=== PATIENT | male | born 1970 | race Caucasian/White ===

== ENCOUNTER → 2016-05-14 | Outpatient (CLI) | payer OTHER ==
[~2016-05-14] MED LIST: ACHYD1T PO; AMOX875T2 PO; CEPH-507 PO; CLN.1T PO; CYCL10TA9 PO; GABA-486 PO; HYDR-3812 PO; HYDR-3816 PO; HYDR-757 PO; HYDR25TA4 PO; IBUP200C PO; METF500T4 PO; METO-272 PO; METO-333 PO; METO50TA2 PO; PRD20T PO; PRIMATENE MIST INH; ROLAIDS PO; RT-ALBUINH IH; SULF-222 PO; SULF1TAB38 PO; TRAM-21 PO; [UNRECOGNIZED DRUG - OTHER] INH
--- NOTE | 2016-05-14 14:11 | Diagnostic Imaging Report ---
PROCEDURE: CT chest without contrast. TECHNIQUE: Multiple contiguous axial images were obtained through the chest without the use of intravenous contrast. INDICATION: Shortness of breath and wheezing. Chest pain. FINDINGS: The lungs demonstrate no significant consolidation. There is minimal scarring in the anterior right perihilar region. Minimal respiratory motion artifact in the lung bases noted with overall diagnostic quality of the exam however acceptable. No mass or suspicious pulmonary nodule. The heart size is normal. No pericardial effusion. No pleural effusion. The thoracic aorta is normal in caliber. There is no mediastinal mass or lymphadenopathy. No axillary lymphadenopathy. The hilar vessels are not opacified with no obvious hilar enlarged lymph nodes seen. The liver demonstrates diffuse hepatic steatosis. Lobulation and suggestion of scarring in the upper pole of the left kidney seen. There is also mild ectasia of the upper pole calyces. Scoliosis in the thoracic spine with mild degenerative changes seen. The scoliosis is centered in the mid thoracic spine convex to the right. IMPRESSION: 1. Mild right perihilar scarring with no significant abnormality seen in the chest otherwise. 2. Hepatic steatosis. Dictated by: Dictated on workstation # [id number]
--- NOTE | 2016-05-14 19:15 | Diagnostic Imaging Report ---
Scrotal ultrasound. INDICATION: Scrotal wall abscess. FINDINGS: The right testicle is 4.1 x 2.4 x 3.1 cm. The left testicle is 5.4 x 2.8 x 3.2 cm. There is a small to moderate bilateral hydrocele more prominent on the left side.. There is a 4.7 x 0.9 x 1.2 cm elongated hypoechoic abnormality seen in the right lateral aspect of the scrotum just deep to the skin. This is not associated with internal vascularity; however, there is increased color Doppler in the surrounding tissue. Both testicles demonstrate symmetric color Doppler signal. No varicoele. No solid mass in the testicles. IMPRESSION: 1. Elongated hypoechoic subcutaneous lesion along the right lateral aspect of the scrotum with surrounding hyperemia could be related to abscess or chronic seroma. Correlate clinically. 2. Small to moderate bilateral hydrocele. Dictated by: Dictated on workstation # [id number]
== END ==
LOC: RAD 10:54
PROVIDERS: ATTEND Family Medicine
DX: J98.4 Other disorders of lung (principal); R50.9 Fever, unspecified; N49.2 Inflammatory disorders of scrotum
CPT/HCPCS: 71250; 76870

== ENCOUNTER 2016-05-28 14:57 | Outpatient (RCR) | payer OTHER ==
[~2016-05-28 14:57] MED LIST changes: -AMOX875T2 PO; -METF500T4 PO; -METO50TA2 PO; -RT-ALBUINH IH
== END 2016-05-28 16:00 | disposition home or self-care (01) ==
LOC: WOUNDCARE 14:57
PROVIDERS: ATTEND Surgery
DX: I87.2 Venous insufficiency (chronic) (peripheral) (principal); I10 Essential (primary) hypertension; J44.9 Chronic obstructive pulmonary disease, unspecified; Z83.3 Family history of diabetes mellitus
CPT/HCPCS: 99212; 99213

== ENCOUNTER 2016-06-07 01:32 | Emergency (ER) | payer MEDICARE, OTHER ==
[~2016-06-07] VITALS: Ht 193 cm; Wt 151.0 kg
[2016-06-07] MEDS ORDERED: ASPIRIN 81 MG CHEW (CHILDREN'S ASA) PO ONE (01:45)
[2016-06-07] MEDS ORDERED: RX-NITROGLYCERIN 0.4 MG TAB BTL 25'S SL ONE (01:45)
[2016-06-07] MEDS ORDERED: RT-ALBUINH IH (01:49)
[2016-06-07] MEDS ORDERED: METF500T4 PO (01:52)
[2016-06-07 01:56] LABS: BASOPHILS # (AUTO) 0.1 10^3/uL (0.0-0.1); BASOPHILS % (AUTO) 1 % (0-10); EOSINOPHILS # (AUTO) 0.3 10^3/uL (0.0-0.3); EOSINOPHILS % (AUTO) 2 % (0-10); LYMPHOCYTES # (AUTO) 3.3 X 10^3 (1.0-4.0); LYMPHOCYTES % (AUTO) 24 % (12-44); MEAN CORPUSCULAR HEMOGLOBIN 31 PG (25-34); MEAN CORPUSCULAR HGB CONC 36 G/DL (32-36); MEAN CORPUSCULAR VOLUME 86 FL (80-99); MEAN PLATELET VOLUME 11.9 FL (7.4-10.4); MONOCYTES % (AUTO) 7 % (0-12); NEUTROPHILS # (AUTO) 9.4 X 10^3 (1.8-7.8); NEUTROPHILS % (AUTO) 67 % (42-75); PLATELET COUNT 195 10^3/uL (130-400); RED BLOOD COUNT 5.31 10^6/uL (4.35-5.85); RED CELL DISTRIBUTION WIDTH 13.4 % (10.0-14.5)
--- NOTE | 2016-06-07 02:01 | ED Chest Pain ---
General Chief Complaint: Chest Pain Stated Complaint: CP,SOB Nursing Triage Note: Pt c/o sternal chest pain onset at 2100. Pt also reports SOA and feeling dizzy. Pt reports he started a new diabetic medication today and states he has not been eating much today because of a bad tooth. Nursing Sepsis Screen: No Definite Risk Source: patient Exam Limitations: no limitations History of Present Illness Time seen by provider: 01:35 Initial Comments 45 yo male presents with chest/epigastric pain. pt states pain started around 9 pm. pt describes pain as sharp, stabbing. pt has some mild sob, dizziness. pt states hasnt eatin much because problem with tooth. pt started metformin today. pt has some mild nausea. Severity/Quality: sharp, stabbing Location: substernal, epigastric Radiation: no radiation Activities at Onset: none ASA po FAMILY PRACTICE PHYSICIAN ASSISTANT: No NTG SL FAMILY PRACTICE PHYSICIAN ASSISTANT: No Associated Symptoms: dizziness, shortness of breath Allergies and Home Medications Allergies Uncoded Allergies: ADHISIVE TAPE (Allergy, Mild, 06/25/08) Home Medications Albuterol Sulfate 6.7 Gm Hfa.aer.ad, 2 PUFF IH Q4H PRN for SHORTNESS OF BREATH, (Reported) Amoxicillin 875 Mg Tablet, 875 MG PO BID, #14 Prescribed by: SO GALINDO on 06/07/16 0229 Cyclobenzaprine HCl 10 Mg Tablet, 10 MG PO Q8H PRN for SPASMS, #15 Prescribed by: ISAAC THOMAS on 03/05/15 0508 Gabapentin 100 Mg Capsule, 200 MG PO BID, #120 (Reported) Hydrochlorothiazide 25 Mg Tablet, 25 MG PO DAILY, #30 (Reported) Metformin HCl 500 Mg Tablet, 500 MG PO DAILY, (Reported) Metoprolol Tartrate 25 Mg Tablet, 50 MG PO BID, #60 (Reported) Review of Systems Constitutional: No chills, dizziness, No fever EENTM: No Symptoms Reported Respiratory: Shortness of Air Cardiovascular: See HPI Gastrointestinal: Nausea Musculoskeletal: no symptoms reported Skin: no symptoms reported Past Iaafjpk-Qobgwh-Lieyxa Hx Patient Social History Alcohol Use: Denies Use Recreational Drug Use: No Smoking Status: Current Everyday Smoker 2nd Hand Smoke Exposure: Yes Recent Foreign Travel: No Contact w/Someone Who Travel: No Recent Infectious Disease Expo: No Recent Hopitalizations: No Immunizations Up To Date Tetanus Booster (TDap): More than 5yrs Seasonal Allergies Seasonal Allergies: No Surgeries HX Surgeries: Yes (MULTIPLE KIDNEY SURGERIES) Surgeries: Renal Respiratory Hx Respiratory Disorders: Yes (uses an over the counter inhaler prn) Respiratory Disorders: Chronic Bronchitis Cardiovascular Hx Cardiac Disorders: Yes Cardiac Disorders: Chronic Edema/Swelling, Hypertension, Peripheral Vascular Neurological Hx Neurological Disorders: Yes Neurological Disorders: Neuropathy Reproductive System Hx Reproductive Disorders: No Sexually Transmitted Disease: No HIV/AIDS: No Genitourinary Hx Genitourinary Disorders: Yes (KIDNEY PROBLEMS; 16 kidney sx's b4 age of 12) Gastrointestinal Hx Gastrointestinal Disorders: No Musculoskeletal Hx Musculoskeletal Disorders: Yes (debility ambulating due to poor circulation to lower legs) Endocrine Hx Endocrine Disorders: Yes Endocrine Disorders: Diabetes, Non-Insulin dep HEENT HX ENT Disorders: No Loss of Vision: Denies Hearing Impairment: Denies Cancer Hx Cancer: No Psychosocial Hx Psychiatric Problems: Yes Behavioral Health Disorders: Anxiety Integumentary HX Skin/Integumentary Disorder: Yes (poor tissue profusion to lower hitesh legs, CHRONIC CELLULITIS) Blood Transfusions Hx Blood Disorders: No Adverse Reaction to a Blood Tr: No Reviewed Nursing Assessment Reviewed/Agree w Nursing PMH: Yes Family Medical History Family Medial History: Arthritis MATERNAL UNCLE, Onset:Unknown FH: cancer 19 MOTHER, Onset:Unknown (UNSURE OF WHAT TYPE OF CANCER) FH: deafness SON, Onset:[place] (BORN DEAF) FH: emphysema MATERNAL UNCLE, Onset:Unknown FH: genetic disorder FH: throat cancer 19 FATHER, Onset:Unknown Myocardial infarction 19 FATHER, Onset:Unknown 19 MOTHER, Onset:Unknown Physical Exam Vital Signs Vital Sign - Last 12Hours Capillary Refill : Less Than 3 Seconds General Appearance: No Apparent Distress, WD/WN HEENT: Other (severe dental decay with probable infection ) Neck: Non Tender Respiratory: Chest Non Tender, Lungs Clear, Normal Breath Sounds Cardiovascular: Regular Rate, Rhythm, Normal Peripheral Pulses Gastrointestinal: Soft, Tenderness (mild epigastric ) Extremity: Normal Capillary Refill, Pedal Edema, Other (chronic venous stasis changes to lower ext ) Neurologic/Psychiatric: Alert, Oriented x3 Progress/Results/Core Measures Results/Orders Lab Results Laboratory Tests Test 06/07/16 01:44 Range/Units White Blood Count 14.0 H 4.3-11.0 10^3/uL Red Blood Count 5.31 4.35-5.85 10^6/uL Hemoglobin 16.4 13.3-17.7 G/DL Hematocrit 46 40-54 % Mean Corpuscular Volume 86 80-99 FL Mean Corpuscular Hemoglobin 31 25-34 PG Mean Corpuscular Hemoglobin Concent 36 32-36 G/DL Red Cell Distribution Width 13.4 10.0-14.5 % Platelet Count 195 130-400 10^3/uL Mean Platelet Volume 11.9 H 7.4-10.4 FL Neutrophils (%) (Auto) 67 42-75 % Lymphocytes (%) (Auto) 24 12-44 % Monocytes (%) (Auto) 7 0-12 % Eosinophils (%) (Auto) 2 0-10 % Basophils (%) (Auto) 1 0-10 % Neutrophils # (Auto) 9.4 H 1.8-7.8 X 10^3 Lymphocytes # (Auto) 3.3 1.0-4.0 X 10^3 Monocytes # (Auto) 1.0 0.0-1.0 X 10^3 Eosinophils # (Auto) 0.3 0.0-0.3 10^3/uL Basophils # (Auto) 0.1 0.0-0.1 10^3/uL Prothrombin Time 12.9 12.2-14.7 SEC INR Comment 1.0 0.8-1.4 Activated Partial Thromboplast Time 27 24-35 SEC Sodium Level 127 L 135-145 MMOL/L Potassium Level 3.7 3.6-5.0 MMOL/L Chloride Level 91 L 98-107 MMOL/L Carbon Dioxide Level 24 21-32 MMOL/L Anion Gap 12 5-14 MMOL/L Blood Urea Nitrogen 21 H 7-18 MG/DL Creatinine 1.50 H 0.60-1.30 MG/DL Estimat Glomerular Filtration Rate 50 BUN/Creatinine Ratio 14 Glucose Level 116 H 70-105 MG/DL Calcium Level 9.4 8.5-10.1 MG/DL Magnesium Level 1.4 L 1.8-2.4 MG/DL Total Bilirubin 0.7 0.1-1.0 MG/DL Aspartate Amino Transf (AST/SGOT) 22 5-34 U/L Alanine Aminotransferase (ALT/SGPT) 31 0-55 U/L Alkaline Phosphatase 73 40-136 U/L Troponin I < 0.30 <0.30 NG/ML B-Type Natriuretic Peptide < 10.0 <100.0 PG/ML Total Protein 6.6 6.4-8.2 G/DL Albumin 3.6 3.2-4.5 G/DL My Orders Orders - SO GALINDO L DO Cbc With Automated Diff (06/07/16 01:44) Magnesium (06/07/16 01:44) Chest 1 View, Ap/Pa Only (06/07/16 01:44) Ekg Tracing (06/07/16 01:44) Cardiac Profile 1 (06/07/16 01:44) Comprehensive Metabolic Panel (06/07/16 01:44) Protime With Inr (06/07/16 01:44) Partial Thromboplastin Time (06/07/16 01:44) O2 (06/07/16 01:44) Monitor-Rhythm Ecg Trace Only (06/07/16 01:44) Aspirin Chewable Tablet (Baby Aspirin Ch (06/07/16 01:45) Rx-Nitroglycerin Sl Tabs (Rx-Nitrostat S (06/07/16 01:45) Saline Lock/Iv-Start (06/07/16 01:44) BNP (06/07/16 01:44) Lidocaine 2% Viscous 15 Ml (Xylocaine Vi (06/07/16 02:15) Antacid Suspension (Mylanta Suspension (06/07/16 02:15) Ns Iv 1000 Ml (Sodium Chloride 0.9%) (06/07/16 02:23) Ketorolac Injection (Toradol Injection) (06/07/16 02:23) Ceftriaxone Injection (Rocephin Injectio (06/07/16 02:30) Medications Given in ED Current Medications Medications Dose Ordered Sig/Antonia Route Start Time Stop Time Status Last Admin Dose Admin Al Hydrox/Mg Hydrox/Simethicone 30 ml ONCE ONCE PO 06/07/16 02:15 06/07/16 02:16 DC 06/07/16 02:06 30 ML Aspirin 324 mg ONCE ONCE PO 06/07/16 01:45 06/07/16 01:46 DC 06/07/16 01:49 324 MG Ceftriaxone Sodium 1000 mg/ Sodium Chloride 50 ml @ 100 mls/hr ONCE ONCE IV 06/07/16 02:30 06/07/16 02:59 DC 06/07/16 02:31 100 MLS/HR Lidocaine HCl 15 ml ONCE ONCE PO 06/07/16 02:15 06/07/16 02:16 DC 06/07/16 02:06 15 ML Nitroglycerin 0.4 mg UD ONCE SL 06/07/16 01:45 06/07/16 01:46 DC 06/07/16 01:49 0.4 MG Sodium Chloride 1,000 ml @ 0 mls/hr Q0M ONCE IV 06/07/16 02:23 06/07/16 02:24 DC 06/07/16 02:31 999 MLS/HR Vital Signs/I&O Vital Sign - Last 12Hours 06/07/16 06/07/16 06/07/16 06/07/16 01:40 01:40 01:48 03:26 Temp 98.0 98.0 Pulse 92 76 Resp 22 20 B/P (MAP) 190/116 Pulse Ox 94 96 96 O2 Delivery Room Air Room Air Room Air Blood Pressure Mean: 140 ECG Initial ECG Impression Time: 01:43 Initial ECG Rhythm: Normal Sinus Initial ECG Intervals: Normal Initial ECG Impression: Normal Initial ECG Comparisson: Unchanged Diagnostic Imaging Diagonstic Imaging: Xray Plain Films/CT/US/NM/MRI: chest Comments no acute change Reviewed: Reviewed by Me Departure Impression Impression: Primary Impression: Infected dental caries Additional Impressions: Medication side effect Qualified Codes: T88.7XXA - Unspecified adverse effect of drug or medicament, initial encounter Lung disease, restrictive GERD (gastroesophageal reflux disease) Qualified Codes: K21.9 - Gastro-esophageal reflux disease without esophagitis Dehydration with hyponatremia Disposition: 01 HOME, SELF-CARE Condition: Improved Departure-Patient Inst. Referrals: DEONNA BARKER MD (PCP/Family) Primary Care Physician Patient Instructions: Acid Reflux (Gastroesophageal Reflux Disease), Adult (DC) , Side Effects From Medicines, Tooth Decay, Adult (DC) Scripts Amoxicillin (Amoxicillin) 875 Mg Tablet 875 MG PO BID, #14 TAB Prov: SO GALINDO DO 06/07/16 SO GALINDO DO Jun 07, 2016 02:01
[2016-06-07 02:02] LABS: PROTHROMBIN TIME PATIENT 12.9 SEC (12.2-14.7)
[2016-06-07 02:13] LABS: ALANINE AMINOTRANSFERASE 31 U/L (0-55); ALBUMIN 3.6 G/DL (3.2-4.5); ANION GAP 12 MMOL/L (5-14); ASPARTATE AMINO TRANSFERASE 22 U/L (5-34); BILIRUBIN,TOTAL 0.7 MG/DL (0.1-1.0); BLOOD UREA NITROGEN 21 MG/DL (7-18); BUN/CREATININE RATIO 14; CALCIUM 9.4 MG/DL (8.5-10.1); CARBON DIOXIDE 24 MMOL/L (21-32); CHLORIDE 91 MMOL/L (98-107); GFR ESTIMATED 50; GLUCOSE 116 MG/DL (70-105); MAGNESIUM 1.4 MG/DL (1.8-2.4); POTASSIUM 3.7 MMOL/L (3.6-5.0); SODIUM 127 MMOL/L (135-145); TOTAL PROTEIN 6.6 G/DL (6.4-8.2)
[2016-06-07] MEDS ORDERED: LIDOCAINE 2% VISCOUS 15 ML UDC PO ONE (02:15)
[2016-06-07] MEDS ORDERED: ANTACID SUSP 30 ML UDC (MYLANTA) PO ONE (02:15)
[2016-06-07] MEDS ORDERED: NS IV 1000 ML 1,000 ML IV ONE (02:23)
[2016-06-07] MEDS ORDERED: KETOROLAC 30 MG/ML VIAL IVP STA (02:23)
[2016-06-07] MEDS ORDERED: AMOX875T2 PO (02:29)
[2016-06-07] MEDS ORDERED: cefTRIAXone INJECTION 1,000 MG in NS (IVPB) 50 ML IV ONE (02:30)
[2016-06-07 03:26] VITALS: BP 126/89
--- NOTE | 2016-06-07 08:09 | Diagnostic Imaging Report ---
INDICATION: Chest pain. Comparison with 03/05/2015. FINDINGS: Lungs are well-aerated. Heart is not enlarged. There has been development of perihilar interstitial infiltrates bilaterally since previous exam. No pleural effusions. No pneumothorax. IMPRESSION: Developing perihilar interstitial infiltrates bilaterally since previous exam. Dictated by: Dictated on workstation # [id number]
--- OUTSIDE RECORDS SUMMARY | 2016-06-24 11:35 | XMS REPORT ---
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
--- OUTSIDE RECORDS SUMMARY | 2016-06-24 11:35 | XMS REPORT ---
Author Author DEONNA BARKER eClinicalWorks Address Unknown Phone Unavailable Care Team Providers Care Cover Operator Name Role Phone DEONNA BARKER Unavailable Allergies, Adverse Reactions, Alerts Substance Reaction Event Type Adhesive Tape Info Not Available Non Drug Allergy Problems Problem Type Condition Code Onset Dates Condition Status Assessment Essential hypertension I10 Active Assessment Restrictive lung disease J98.4 Active Assessment CKD stage G3a/A1, GFR 45-59 and albumin creatinine ratio <30 mg/g N18.3 Active Assessment Neuropathy G62.9 Active Problem Essential hypertension I10 Active Problem Venous insufficiency I87.2 Active Problem Tobacco use Z72.0 Active Problem CKD stage G3a/A1, GFR 45-59 and albumin creatinine ratio <30 mg/g N18.3 Active Problem Restrictive lung disease J98.4 Active Problem Congenital renal anomaly Q63.9 Active Problem Prediabetes R73.09 Active Medications Medication Code System Code Instructions Start Date End Date Status Dosage Ventolin HFA [facility] [place] [address]-80 108 (90 Base) MCG/ACT Inhalation every 4 hrs 2 puffs as needed Metoprolol Tartrate [facility] [place] 73975416389 50 MG Orally Twice a day 1 tablet Cyclobenzaprine HCl [facility] [place] [address]-15 10 mg Orally Three times a day 1 tablet Gabapentin [facility] [place] [address]-88 100 MG Orally 2 capsules two times per day Dec 05, 2014 as directed Hydrochlorothiazide [facility] [place] [address]-76 25 mg Orally Once a day Mar 31, 2014 1 tablet Melatonin [facility] [place] [address] 10 MG Orally not defined Procedures Procedure Coding System Code Date COMPLETE CBC W/AUTO DIFF WBC CPT-4 90373 September 28, 2015 Office Visit, Est Pt., Level 3 CPT-4 22619 September 28, 2015 BASIC METABOLIC PANEL CPT-4 63931 September 28, 2015 VENIPUNCT, ROUTINE* CPT-4 10030 September 28, 2015 Vital Signs Date/Time: September 28, 2015 Cardiac Monitoring Heart Rate 92 bpm Weight 340.5 lbs Height 76 in Blood Pressure Diastolic 86 mmHg Blood Pressure Systolic 144 mmHg Results No Known Results Summary Purpose eClinicalWorks Submission
--- OUTSIDE RECORDS SUMMARY | 2016-06-24 11:35 | XMS REPORT ---
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 [address]-49 20 MEQ Orally Once a day with furosemide Nov 07, 2014 as directed Metoprolol Tartrate [facility] [address]-10 25 MG Orally Twice a day Oct 23, 2014 1 tablet Furosemide [facility] [address]-56 40 MG Orally Once a day Nov 07, 2014 1 tablet Hydrochlorothiazide [facility] [address]-11 25 mg Mar 31, 2014 1 tablet by Oral route 1 time per day REPOSITORY Procedures Procedure Coding System Code Date Office Visit, Est Pt., Level 3 CPT-4 89256 Nov 07, 2014 Vital Signs Date/Time: Nov 07, 2014 Temperature 98.1 F Weight 333.5 lbs Height 76 in BMI 40.59 Index Blood Pressure Diastolic 92 mmHg Blood Pressure Systolic 150 mmHg Cardiac Monitoring Heart Rate 88 bpm Results No Known Results Summary Purpose eClinicalWorks Submission
--- OUTSIDE RECORDS SUMMARY | 2016-06-24 11:35 | XMS REPORT ---
Author Author DEONNA BAREKR eClinicalWorks Address Unknown Phone Unavailable Care Team Providers Care Financial Sales Assistant Name Role Phone DEONNA BARKER CP Unavailable Allergies No Known Allergies Problems Problem Type Condition Code Onset Dates Condition Status Assessment CKD stage G3a/A1, GFR 45-59 and albumin creatinine ratio <30 mg/g N18.3 Active Problem Essential hypertension I10 Active Problem Venous insufficiency I87.2 Active Problem Tobacco use Z72.0 Active Problem CKD stage G3a/A1, GFR 45-59 and albumin creatinine ratio <30 mg/g N18.3 Active Problem Restrictive lung disease J98.4 Active Problem Congenital renal anomaly Q63.9 Active Problem Prediabetes R73.09 Active Medications No Known Medications Results No Known Results Summary Purpose eClinicalWorks Submission
--- OUTSIDE RECORDS SUMMARY | 2016-06-24 11:35 | XMS REPORT ---
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
--- OUTSIDE RECORDS SUMMARY | 2016-06-24 11:35 | XMS REPORT ---
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
--- OUTSIDE RECORDS SUMMARY | 2016-06-24 11:35 | XMS REPORT ---
Author Author DEONNA BARKER eClinicalWorks Address Unknown Phone Unavailable Care Team Providers Care Suppository Molding Machine Operator Name Role Phone DEONNA BARKER CP Unavailable Allergies No Known Allergies Problems Problem Type Condition Code Onset Dates Condition Status Problem Venous insufficiency I87.2 Active Problem Congenital renal anomaly Q63.9 Active Problem Essential hypertension I10 Active Problem Prediabetes R73.09 Active Problem CKD stage G3a/A1, GFR 45-59 and albumin creatinine ratio <30 mg/g N18.3 Active Medications No Known Medications Results No Known Results Summary Purpose eClinicalWorks Submission
== END 2016-06-07 03:26 | disposition home or self-care (01) ==
LOC: EDUNIT# 01:32 → ER 01:34
DX: K04.7 Periapical abscess without sinus (principal); R42 Dizziness and giddiness; T38.3X5A Adverse effect of insulin and oral hypoglycemic [antidiabetic] drugs, initial encounter; E87.1 Hypo-osmolality and hyponatremia; J42 Unspecified chronic bronchitis; E11.9 Type 2 diabetes mellitus without complications; K21.9 Gastro-esophageal reflux disease without esophagitis; I10 Essential (primary) hypertension; F17.210 Nicotine dependence, cigarettes, uncomplicated; Z79.899 Other long term (current) drug therapy
CPT/HCPCS: 36415; 71010; 80053; 83735; 83880; 84484; 85025; 85610; 85730; 93005; 93041; 96361; 96365; 96375

== ENCOUNTER 2016-06-23 06:42 | Observation (INO) | payer OTHER ==
[~2016-06-23] VITALS: Ht 193 cm; Wt 147.6 kg
[~2016-06-23 06:42] MED LIST changes: +AMOX875T2 PO; +METF500T4 PO; +RT-ALBUINH IH
[2016-06-23] MEDS ORDERED: NS IV 1000 ML 1,000 ML IV STA (06:44)
[2016-06-23] MEDS ORDERED: ONDANSETRON 4 MG/2 ML (SDV) Z0FRAN IVP ONE (06:45)
[2016-06-23 06:52] LABS: BASOPHILS # (AUTO) 0.1 10^3/uL (0.0-0.1); BASOPHILS % (AUTO) 1 % (0-10); EOSINOPHILS # (AUTO) 0.3 10^3/uL (0.0-0.3); EOSINOPHILS % (AUTO) 2 % (0-10); LYMPHOCYTES % (AUTO) 21 % (12-44); MEAN CORPUSCULAR HEMOGLOBIN 30 PG (25-34); MEAN CORPUSCULAR HGB CONC 34 G/DL (32-36); MEAN CORPUSCULAR VOLUME 89 FL (80-99); MEAN PLATELET VOLUME 11.7 FL (7.4-10.4); MONOCYTES # (AUTO) 1.1 X 10^3 (0.0-1.0); MONOCYTES % (AUTO) 8 % (0-12); NEUTROPHILS # (AUTO) 9.6 X 10^3 (1.8-7.8); NEUTROPHILS % (AUTO) 68 % (42-75); PLATELET COUNT 205 10^3/uL (130-400); RED CELL DISTRIBUTION WIDTH 14.1 % (10.0-14.5)
[2016-06-23] MEDS ORDERED: FAMOTIDINE 20MG/2ML IV (PEPCID) IV STA (06:55)
[2016-06-23 07:12] LABS: ALANINE AMINOTRANSFERASE 35 U/L (0-55); ALBUMIN 3.7 G/DL (3.2-4.5); ANION GAP 14 MMOL/L (5-14); ASPARTATE AMINO TRANSFERASE 21 U/L (5-34); BILIRUBIN,TOTAL 0.4 MG/DL (0.1-1.0); BLOOD UREA NITROGEN 29 MG/DL (7-18); BUN/CREATININE RATIO 17; CALCIUM 9.7 MG/DL (8.5-10.1); CARBON DIOXIDE 23 MMOL/L (21-32); CHLORIDE 99 MMOL/L (98-107); CREATININE SERUM 1.73 MG/DL (0.60-1.30); GFR ESTIMATED 43; GLUCOSE 195 MG/DL (70-105); MAGNESIUM 1.9 MG/DL (1.8-2.4); POTASSIUM 3.9 MMOL/L (3.6-5.0); SODIUM 136 MMOL/L (135-145); TOTAL PROTEIN 7.2 G/DL (6.4-8.2); hs C REACTIVE PROTEIN 0.91 MG/DL (0.00-0.50)
[2016-06-23 07:18] LABS: TROPONIN I < 0.30 NG/ML (<0.30)
--- NOTE | 2016-06-23 07:20 | Diagnostic Imaging Report ---
INDICATION: Nausea, vomiting, shortness of air, dizziness. Study compared to 06/07/2016. FINDINGS: Chronic air trapping stable. Upper limits heart size stable. Prominence of interstitial lung markings unchanged study of 06/07. No effusion or pneumothorax. IMPRESSION: Unchanged perihilar interstitial opacities and lung hyperexpansion with upper limits heart size. No new pathology. Dictated by: Dictated on workstation # [id number]
--- NOTE | 2016-06-23 07:26 | ED Abdominal Pain ---
General Chief Complaint: Abdominal/GI Problems Stated Complaint: DIZZY VOMITING Nursing Triage Note: patient reports n/v, with SOA and dizziness starting at 0300 Sepsis Screen: No Definite Risk Source of Information: Patient Exam Limitations: No Limitations History of Present Illness Time Seen By Provider: 06:42 Initial Comments Here with report of nausea, vomiting, dizziness and shortness of air that started about 3 a.m. this morning and has persisted. States that he feels very dizzy and weak. Has report having diabetes but has no idea what his blood sugar is because he cannot afford the meter. Timing/Duration: 1-3 Hours Severity/Quality: Moderate Location: Epigastric Radiation: No Radiation Activities at Onset: None Associated Symptoms: No Back Pain, No Chest Pain, No Fever/Chills, Nausea/ Vomiting, Weakness Allergies and Home Medications Allergies Uncoded Allergies: ADHISIVE TAPE (Allergy, Mild, 06/25/08) Home Medications Albuterol Sulfate 6.7 Gm Hfa.aer.ad, 2 PUFF IH Q4H PRN for SHORTNESS OF BREATH, (Reported) Cyclobenzaprine HCl 10 Mg Tablet, 10 MG PO Q8H PRN for SPASMS, #15 Prescribed by: ISAAC THOMAS on 03/05/15 0508 Gabapentin 100 Mg Capsule, 200 MG PO BID, #120 (Reported) Hydrochlorothiazide 25 Mg Tablet, 25 MG PO DAILY, #30 (Reported) Metformin HCl 500 Mg Tablet, 500 MG PO DAILY, (Reported) Metoprolol Tartrate 25 Mg Tablet, 50 MG PO BID, #60 (Reported) Review of Systems Constitutional: see HPI, No chills, No fever, weakness EENTM: No Symptoms Reported Respiratory: Denies Cough, Shortness of Air Cardiovascular: No Symptoms Reported Gastrointestinal: See HPI, Diarrhea (reports at least one time), Nausea, Vomiting Genitourinary: No Symptoms Reported Musculoskeletal: no symptoms reported Skin: no symptoms reported Psychiatric/Neurological: Anxiety, Denies Headache, Weakness All Other Systems Reviewed Negative Unless Noted: Yes Past Nariygz-Ioasyk-Adtdbg Hx Patient Social History Alcohol Use: Denies Use Recreational Drug Use: No 2nd Hand Smoke Exposure: Yes Recent Foreign Travel: No Contact w/Someone Who Travel: No Recent Infectious Disease Expo: No Recent Hopitalizations: No Immunizations Up To Date Tetanus Booster (TDap): More than 5yrs Seasonal Allergies Seasonal Allergies: No Surgeries HX Surgeries: Yes (MULTIPLE KIDNEY SURGERIES) Surgeries: Renal Respiratory Hx Respiratory Disorders: Yes (uses an over the counter inhaler prn) Respiratory Disorders: Chronic Bronchitis Cardiovascular Hx Cardiac Disorders: Yes Cardiac Disorders: Chronic Edema/Swelling, Hypertension, Peripheral Vascular Neurological Hx Neurological Disorders: Yes Neurological Disorders: Neuropathy Reproductive System Hx Reproductive Disorders: No Sexually Transmitted Disease: No HIV/AIDS: No Genitourinary Hx Genitourinary Disorders: Yes (KIDNEY PROBLEMS; 16 kidney sx's b4 age of 12) Gastrointestinal Hx Gastrointestinal Disorders: No Musculoskeletal Hx Musculoskeletal Disorders: Yes (debility ambulating due to poor circulation to lower legs) Endocrine Hx Endocrine Disorders: Yes Endocrine Disorders: Diabetes, Non-Insulin dep HEENT HX ENT Disorders: No Loss of Vision: Denies Hearing Impairment: Denies Cancer Hx Cancer: No Psychosocial Hx Psychiatric Problems: Yes Behavioral Health Disorders: Anxiety Integumentary HX Skin/Integumentary Disorder: Yes (poor tissue profusion to lower hitesh legs, CHRONIC CELLULITIS) Blood Transfusions Hx Blood Disorders: No Adverse Reaction to a Blood Tr: No Reviewed Nursing Assessment Reviewed/Agree w Nursing PMH: Yes Family Medical History Family Medial History: Arthritis MATERNAL UNCLE, Onset:Unknown FH: cancer 19 MOTHER, Onset:Unknown (UNSURE OF WHAT TYPE OF CANCER) FH: deafness SON, Onset:[place] (BORN DEAF) FH: emphysema MATERNAL UNCLE, Onset:Unknown FH: genetic disorder FH: throat cancer 19 FATHER, Onset:Unknown Myocardial infarction 19 FATHER, Onset:Unknown 19 MOTHER, Onset:Unknown Physical Exam Vital Signs VS - Last 72 Hours, by Label 06/23/16 06:44 Temp 97.0 Pulse 80 Resp 31 B/P (MAP) 152/92 Pulse Ox 90 O2 Delivery Room Air Capillary Refill : Less Than 3 Seconds General Appearance: WD/WN, moderate distress (weak and vomiting), obese HEENT: PERRL/EOMI, pharynx normal Neck: full range of motion, supple Respiratory: lungs clear, normal breath sounds Cardiovascular: regular rate, rhythm, no murmur Gastrointestinal: non tender, soft Extremities: non-tender, pedal edema (2+ lower extremity) Back: normal inspection, no CVA tenderness, no vertebral tenderness Neurologic/Psychiatric: alert, oriented x 3 Skin: warm/dry, other (venous stasis color changes to the lower extremities bilaterally) Progress/Results/Core Measures Results/Orders Lab Results Laboratory Tests Test 06/23/16 06:43 06/23/16 08:20 Range/Units White Blood Count 14.0 H 4.3-11.0 10^3/uL Red Blood Count 5.40 4.35-5.85 10^6/uL Hemoglobin 16.3 13.3-17.7 G/DL Hematocrit 48 40-54 % Mean Corpuscular Volume 89 80-99 FL Mean Corpuscular Hemoglobin 30 25-34 PG Mean Corpuscular Hemoglobin Concent 34 32-36 G/DL Red Cell Distribution Width 14.1 10.0-14.5 % Platelet Count 205 130-400 10^3/uL Mean Platelet Volume 11.7 H 7.4-10.4 FL Neutrophils (%) (Auto) 68 42-75 % Lymphocytes (%) (Auto) 21 12-44 % Monocytes (%) (Auto) 8 0-12 % Eosinophils (%) (Auto) 2 0-10 % Basophils (%) (Auto) 1 0-10 % Neutrophils # (Auto) 9.6 H 1.8-7.8 X 10^3 Lymphocytes # (Auto) 3.0 1.0-4.0 X 10^3 Monocytes # (Auto) 1.1 H 0.0-1.0 X 10^3 Eosinophils # (Auto) 0.3 0.0-0.3 10^3/uL Basophils # (Auto) 0.1 0.0-0.1 10^3/uL Sodium Level 136 135-145 MMOL/L Potassium Level 3.9 3.6-5.0 MMOL/L Chloride Level 99 98-107 MMOL/L Carbon Dioxide Level 23 21-32 MMOL/L Anion Gap 14 5-14 MMOL/L Blood Urea Nitrogen 29 H 7-18 MG/DL Creatinine 1.73 H 0.60-1.30 MG/DL Estimat Glomerular Filtration Rate 43 BUN/Creatinine Ratio 17 Glucose Level 195 H 70-105 MG/DL Calcium Level 9.7 8.5-10.1 MG/DL Magnesium Level 1.9 1.8-2.4 MG/DL Total Bilirubin 0.4 0.1-1.0 MG/DL Aspartate Amino Transf (AST/SGOT) 21 5-34 U/L Alanine Aminotransferase (ALT/SGPT) 35 0-55 U/L Alkaline Phosphatase 60 40-136 U/L Troponin I < 0.30 <0.30 NG/ML C-Reactive Protein High Sensitivity 0.91 H 0.00-0.50 MG/DL Total Protein 7.2 6.4-8.2 G/DL Albumin 3.7 3.2-4.5 G/DL Urine Color YELLOW Urine Clarity CLEAR Urine pH 6 5-9 Urine Specific [place] 1.015 L 1.016-1.022 Urine Protein 4+ NEGATIVE Urine Glucose (UA) 1+ H NEGATIVE Urine Ketones NEGATIVE NEGATIVE Urine Nitrite NEGATIVE NEGATIVE Urine Bilirubin NEGATIVE NEGATIVE Urine Urobilinogen NORMAL NORMAL MG/DL Urine Leukocyte Esterase 1+ H NEGATIVE Urine RBC (Auto) NEGATIVE NEGATIVE Urine RBC NONE /HPF Urine WBC 5-10 H /HPF Urine Squamous Epithelial Cells 2-5 /HPF Urine Crystals NONE /LPF Urine Bacteria TRACE /HPF Urine Casts NONE /LPF Urine Mucus NEGATIVE /LPF Urine Culture Indicated YES My Orders Orders - ISAAC THOMAS MD Ondansetron Injection (Zofran Injectio (06/23/16 06:45) Ns Iv 1000 Ml (Sodium Chloride 0.9%) (06/23/16 06:44) Saline Lock/Iv-Start (06/23/16 06:44) Cbc With Automated Diff (06/23/16 06:44) Comprehensive Metabolic Panel (06/23/16 06:44) Hs C Reactive Protein (06/23/16 06:44) Magnesium (06/23/16 06:44) Troponin I (06/23/16 06:44) Ua Culture If Indicated (06/23/16 06:44) Ekg Tracing (06/23/16 06:44) Monitor-Rhythm Ecg Trace Only (06/23/16 06:44) Chest 1 View, Ap/Pa Only (06/23/16 06:44) Famotidine Injection (Pepcid Injection) (06/23/16 06:55) Urine Culture (06/23/16 08:20) Medications Given in ED Current Medications Medications Dose Ordered Sig/Antonia Route Start Time Stop Time Status Last Admin Dose Admin Ondansetron HCl 8 mg ONCE ONCE IVP 06/23/16 06:45 06/23/16 06:47 DC 06/23/16 06:50 8 MG Vital Signs/I&O Vital Sign - Last 12Hours 06/23/16 06:44 Temp 97.0 Pulse 80 Resp 31 B/P (MAP) 152/92 Pulse Ox 90 O2 Delivery Room Air Blood Pressure Mean: 112 Progress Note : Progress Note Seen and evaluated. IV, labs, EKG and chest x-ray ordered. Normal saline 1 L bolus. Zofran 8 mg IV, Pepcid 20 mg IV ordered. Fingerstick blood sugar 189. Monitor patient. Patient with persistent nausea and stomach upset. Pepcid 20 mg IV. Monitor patient. 0908: Patient states that he is still dizzy and nauseated and overall doesn't feel well. I did discuss the case with Dr. Barker. She accepts patient for admission for observation. Patient does have questionable findings of UTI but I do believe this is contamination and we will wait for cultures and Dr. Barker agrees. Admit observation status. Patient and family agree with plan. ECG Initial ECG Impression Date: Jun 23, 2016 Initial ECG Impression Time: 06:48 Initial ECG Rate: 74 Initial ECG Rhythm: Normal Sinus Comment Sinus rhythm with normal axis. No evidence of ST elevation GA. Similar to previous of 06/07/16. Interpreted by me. Diagnostic Imaging Diagonstic Imaging: Xray Plain Films/CT/US/NM/MRI: chest Comments VIA [facility] [place], [place] NAME: BC HORTON IV [facility] REC#: [id number] PT STATUS: REG ER : 1970 PHYSICIAN: ISAAC THOMAS MD ADMIT DATE: 06/23/16/ER Draft Date of Exam:06/23/16 CHEST 1 VIEW, AP/PA ONLY INDICATION: Nausea, vomiting, shortness of air, dizziness. Study compared to 06/07/2016. FINDINGS: Chronic air trapping stable. Upper limits heart size stable. Prominence of interstitial lung markings unchanged study of 06/07. No effusion or pneumothorax. IMPRESSION: Unchanged perihilar interstitial opacities and lung hyperexpansion with upper limits heart size. No new pathology. Dictated on workstation # [id number] Dict: 06/23/16 0710 Trans: 06/23/16 0719 [facility] [id number] Interpreted by: KAREEN LORD Electronically signed by: Departure Communication Time/Spoke to Admitting Phy: 09:08 Impression Impression: Primary Impression: Intractable nausea and vomiting Qualified Codes: R11.2 - Nausea with vomiting, unspecified Additional Impression: Dizziness Disposition: ADMITTED INPATIENT Condition: Stable Decision to Admit Reason: Admit from ER (General) Decision to Admit/Date: Jun 23, 2016 Time/Decision to Admit Time: 09:08 Departure-Patient Inst. Referrals: DEONNA BARKER MD (PCP/Family) Primary Care Physician ISAAC THOMAS MD Jun 23, 2016 07:26
[2016-06-23 08:29] LABS: BILIRUBIN,URINE NEGATIVE (NEGATIVE); KETONES,URINE NEGATIVE (NEGATIVE); LEUKOCYTE ESTERASE ,URINE 1+ (NEGATIVE); NITRITE,URINE NEGATIVE (NEGATIVE); PH,URINE 6 (5-9); PROTEIN,URINE 4+ (NEGATIVE); UROBILINOGEN,URINE NORMAL (NORMAL)
[2016-06-23 10:14] VITALS: BP 147/94
[2016-06-23] MEDS ORDERED: METO50TA2 PO (11:05)
[2016-06-23] MEDS ORDERED: CYCL10TA9 PO (11:05)
[2016-06-23] MEDS ORDERED: NS IV 1000 ML 1,000 ML ONE (11:20)
[2016-06-23] MEDS ORDERED: ONDANSETRON 4 MG/2 ML (SDV) Z0FRAN IV PRN (11:30)
[2016-06-23] MEDS ORDERED: CATHETER FLUSH 10 ML SYR IV PRN (11:30)
[2016-06-23] MEDS: NS IV 1000 ML 1,000 ML IV SCH ×2 (11:39→20:04)
[2016-06-23 12:00] VITALS: BP 136/86
[2016-06-23] MEDS: NICOTINE 14 MG (NICODERM) PATCH TD SCH (12:37)
--- NOTE | 2016-06-23 14:28 | History & Physicial (CHS) ---
HPI History of Present Illness: Patient came to ER after vomiting and dizziness at home. He notes that he was watching a movie late last night and when he stood up to get a drink around 2: 30 am, he was dizzy and lightheaded, got his drink and continued to feel poorly , tried taking a shower, but then he vomited and continued to have difficulty with balance and fell in his hallway. He had his girlfriend bring him to the hospital and states he vomited at least twice as was getting to the ER and also started having diarrhea around the same time the other symptoms started. He denies abdominal pain and has no known sick contacts. Attending Physician Deonna Daley MD PCP Deonna Daley MD Consult Date of Admission Jun 23, 2016 at 9:10 am Home Medications Home Medications Reviewed patient Home Medication Reconciliation Form Allergies Uncoded Allergies: ADHISIVE TAPE (Allergy, Mild, 06/25/08) SHB-Qliaew-Urpwty Hx Patient Social History Alcohol Use: Denies Use Recreational Drug Use: No Smoking Status: Current Everyday Smoker 2nd Hand Smoke Exposure: Yes Recent Foreign Travel: No Contact w/other who traveled: No Recent Hopitalizations: No Recent Infectious Disease Expo: No Immunizations Up To Date Tetanus Booster (TDap): More than 5yrs Past Medical History PMHx: Chronic renal insufficiency DMII HTN Congenital renal anomaly Hepatic steatosis Venous insufficiency Restrictive lung disease SurgHx: Multiple kidney and bladder surgeries Family Medical History Significant Family History: Heart Disease, Diabetes Review of Systems ([facility]C) Constitutional: dizziness, No fever, weakness EENTM: nose congestion Respiratory: No cough, No short of breath Cardiovascular: chest pain (reports he has continuous chest pain all the time) Gastrointestinal: see HPI Genitourinary: No dysuria Musculoskeletal: no symptoms reported Skin: No rash Psychiatric/Neurological: No Symptoms Reported Reviewed Test Results Reviewed Test Results Lab Laboratory Tests Test 06/23/16 06:43 06/23/16 08:20 Range/Units White Blood Count 14.0 H 4.3-11.0 10^3/uL Red Blood Count 5.40 4.35-5.85 10^6/uL Hemoglobin 16.3 13.3-17.7 G/DL Hematocrit 48 40-54 % Mean Corpuscular Volume 89 80-99 FL Mean Corpuscular Hemoglobin 30 25-34 PG Mean Corpuscular Hemoglobin Concent 34 32-36 G/DL Red Cell Distribution Width 14.1 10.0-14.5 % Platelet Count 205 130-400 10^3/uL Mean Platelet Volume 11.7 H 7.4-10.4 FL Neutrophils (%) (Auto) 68 42-75 % Lymphocytes (%) (Auto) 21 12-44 % Monocytes (%) (Auto) 8 0-12 % Eosinophils (%) (Auto) 2 0-10 % Basophils (%) (Auto) 1 0-10 % Neutrophils # (Auto) 9.6 H 1.8-7.8 X 10^3 Lymphocytes # (Auto) 3.0 1.0-4.0 X 10^3 Monocytes # (Auto) 1.1 H 0.0-1.0 X 10^3 Eosinophils # (Auto) 0.3 0.0-0.3 10^3/uL Basophils # (Auto) 0.1 0.0-0.1 10^3/uL Sodium Level 136 135-145 MMOL/L Potassium Level 3.9 3.6-5.0 MMOL/L Chloride Level 99 98-107 MMOL/L Carbon Dioxide Level 23 21-32 MMOL/L Anion Gap 14 5-14 MMOL/L Blood Urea Nitrogen 29 H 7-18 MG/DL Creatinine 1.73 H 0.60-1.30 MG/DL Estimat Glomerular Filtration Rate 43 BUN/Creatinine Ratio 17 Glucose Level 195 H 70-105 MG/DL Calcium Level 9.7 8.5-10.1 MG/DL Magnesium Level 1.9 1.8-2.4 MG/DL Total Bilirubin 0.4 0.1-1.0 MG/DL Aspartate Amino Transf (AST/SGOT) 21 5-34 U/L Alanine Aminotransferase (ALT/SGPT) 35 0-55 U/L Alkaline Phosphatase 60 40-136 U/L Troponin I < 0.30 <0.30 NG/ML C-Reactive Protein High Sensitivity 0.91 H 0.00-0.50 MG/DL Total Protein 7.2 6.4-8.2 G/DL Albumin 3.7 3.2-4.5 G/DL Urine Color YELLOW Urine Clarity CLEAR Urine pH 6 5-9 Urine Specific [place] 1.015 L 1.016-1.022 Urine Protein 4+ NEGATIVE Urine Glucose (UA) 1+ H NEGATIVE Urine Ketones NEGATIVE NEGATIVE Urine Nitrite NEGATIVE NEGATIVE Urine Bilirubin NEGATIVE NEGATIVE Urine Urobilinogen NORMAL NORMAL MG/DL Urine Leukocyte Esterase 1+ H NEGATIVE Urine RBC (Auto) NEGATIVE NEGATIVE Urine RBC NONE /HPF Urine WBC 5-10 H /HPF Urine Squamous Epithelial Cells 2-5 /HPF Urine Crystals NONE /LPF Urine Bacteria TRACE /HPF Urine Casts NONE /LPF Urine Mucus NEGATIVE /LPF Urine Culture Indicated YES Radiology CXR: chronic hyperexpansion and increased interstitial markings Physical Exam-([facility]) Physical Exam Vital Signs VS - Last 72 Hours, by Label 06/23/16 06/23/16 06/23/16 06/23/16 06:44 09:58 10:14 12:00 Temp 97.0 97.4 97.4 Pulse 80 82 86 97 Resp 31 16 20 22 B/P (MAP) 152/92 147/94 136/86 Pulse Ox 90 96 97 97 O2 Delivery Room Air Room Air Room Air Capillary Refill : Less Than 3 Seconds General Appearance: no apparent distress Respiratory: lungs clear, normal breath sounds Cardiovascular: regular rate, rhythm, no murmur Gastrointestinal: normal bowel sounds, non tender, soft Extremities: pedal edema (chronic venous stasis dermatitis changes) Neurologic/Psychiatric: alert, normal mood/affect Assessment/Plan Assessment/Plan Admission Dx 1. Dizziness/presyncope 2. Vomiting and diarrhea 3. Chronic renal insufficiency 4. Chronic venous stasis dermatitis/edema 5. DMII 6. HTN 7. Restrictive lung disease 8. Chest pain Plan 1. Dizziness/presyncope- likely secondary to viral gastroenteritis, will re- evaluate if not improved with IV rehydration -IVF 2. Vomiting and diarrhea- likely viral -IVF, ondansetron, CLD 3. Chronic renal insufficiency- at baseline -Monitor 4. Chronic venous stasis dermatitis/peripheral edema -No acute changes or open lesions currently -Hold diuretics 5. DMII- -Sliding scale insulin -Hold metformin 6. HTN- resume home meds as needed 7. Restrictive lung disease- RT protocol 8. Chest pain- not consistent with acute issue given the chronic nature, but with multiple risk factors warrants Cardiology evaluation -Consider outpatient if enzymes normal DVT ppx- SCDs enoxaparin Diagnosis/Problems: Copy Copies To 1: DEONNA DALEY MD, BETHANY N MD Jun 23, 2016 2:28 pm
[2016-06-23] MEDS: inSUlin (REGULAR) HUMAN 1 UNIT/0.01 ML (CHARGE PER UNIT) SC SCH ×2 (14:30→19:30)
[2016-06-23] MEDS ORDERED: ENOXAPARIN 40 MG/0.4 ML (LOVENOX) SYR SC SCH (15:00)
[2016-06-23 15:46] VITALS: BP 157/88
[2016-06-23] MEDS ORDERED: CYCLOBENZAPRINE 10 MG (FLEXERIL) TAB PO NR (16:45)
[2016-06-23] MEDS ORDERED: GABAPENTIN 100 MG (NEURONTIN) CAP PO NR (16:45)
[2016-06-23] MEDS ORDERED: RT-ALBUTEROL SULF 2.5 MG/3 ML PRE-MIX VIAL IH PRN (17:00)
[2016-06-23 20:00] VITALS: BP 152/76
[2016-06-23] MEDS: GABAPENTIN 100 MG (NEURONTIN) CAP PO SCH (20:08)
[2016-06-23] MEDS: CYCLOBENZAPRINE 10 MG (FLEXERIL) TAB PO SCH (20:08)
[2016-06-23] MEDS: meTOprolol TARTRATE 50 MG (LOPRESSOR) TAB PO SCH (20:08)
[2016-06-23] MEDS: RT-ALBUTEROL SULF 2.5 MG/3 ML PRE-MIX VIAL IH SCH (21:41)
[2016-06-23 23:16] VITALS: BP 131/78
[2016-06-24 04:00] VITALS: BP 126/82
[2016-06-24] MEDS: NS IV 1000 ML 1,000 ML IV SCH ×2 (04:04→11:30)
[2016-06-24] MEDS: inSUlin (REGULAR) HUMAN 1 UNIT/0.01 ML (CHARGE PER UNIT) SC SCH ×2 (06:00→09:30)
[2016-06-24 06:05] LABS: BASOPHILS # (AUTO) 0.1 10^3/uL (0.0-0.1); BASOPHILS % (AUTO) 1 % (0-10); EOSINOPHILS # (AUTO) 0.2 10^3/uL (0.0-0.3); EOSINOPHILS % (AUTO) 3 % (0-10); LYMPHOCYTES # (AUTO) 2.7 X 10^3 (1.0-4.0); LYMPHOCYTES % (AUTO) 30 % (12-44); MEAN CORPUSCULAR HEMOGLOBIN 30 PG (25-34); MEAN CORPUSCULAR HGB CONC 33 G/DL (32-36); MEAN CORPUSCULAR VOLUME 92 FL (80-99); MONOCYTES # (AUTO) 0.7 X 10^3 (0.0-1.0); MONOCYTES % (AUTO) 8 % (0-12); NEUTROPHILS # (AUTO) 5.2 X 10^3 (1.8-7.8); NEUTROPHILS % (AUTO) 58 % (42-75); PLATELET COUNT 162 10^3/uL (130-400); RED BLOOD COUNT 4.63 10^6/uL (4.35-5.85); RED CELL DISTRIBUTION WIDTH 14.4 % (10.0-14.5); WHITE BLOOD COUNT 8.9 10^3/uL (4.3-11.0)
[2016-06-24 06:29] LABS: ALBUMIN 3.2 G/DL (3.2-4.5); BILIRUBIN,TOTAL 0.4 MG/DL (0.1-1.0); CALCIUM 7.7 MG/DL (8.5-10.1); CREATININE SERUM 1.41 MG/DL (0.60-1.30); POTASSIUM 4.3 MMOL/L (3.6-5.0)
[2016-06-24] MEDS: RT-ALBUTEROL SULF 2.5 MG/3 ML PRE-MIX VIAL IH SCH (07:08)
[2016-06-24 07:20] VITALS: BP 148/70
[2016-06-24] MEDS: CYCLOBENZAPRINE 10 MG (FLEXERIL) TAB PO SCH (08:09)
[2016-06-24] MEDS: meTOprolol TARTRATE 50 MG (LOPRESSOR) TAB PO SCH (08:09)
[2016-06-24] MEDS: NICOTINE 14 MG (NICODERM) PATCH TD SCH (08:10)
[2016-06-24] MEDS: GABAPENTIN 100 MG (NEURONTIN) CAP PO SCH (08:10)
[2016-06-24] MEDS ORDERED: NICOTINE 14 MG (NICODERM) PATCH TD SCH (09:00)
[2016-06-24] MEDS ORDERED: PATCH REMOVAL TP SCH (09:00)
[2016-06-24] MEDS ORDERED: HYDROCHLOROTHIAZIDE 25 MG (HCTZ) TAB PO SCH (09:00)
--- NOTE | 2016-06-24 10:28 | Discharge Instructions ---
Discharge [facility] Discharge Medications Continued Medications: Albuterol Sulfate (Proventil Hfa) 6.7 Gm Hfa.aer.ad 2 PUFF IH Q4H PRN for SHORTNESS OF BREATH, EACH Cyclobenzaprine HCl (Cyclobenzaprine HCl) 10 Mg Tablet 10 MG PO TID, TAB Gabapentin (Gabapentin) 100 Mg Capsule 200 MG PO BID, CAP TAKES 2 (100MG) CAPSULES Hydrochlorothiazide (Hydrochlorothiazide) 25 Mg Tablet 25 MG PO DAILY, TAB Metformin HCl (Metformin HCl) 500 Mg Tablet 500 MG PO BID WITH MEALS, TAB Metoprolol Tartrate (Metoprolol Tartrate) 50 Mg Tablet 50 MG PO BID, TAB Patient Instructions Goal/Follow Up Appt: Follow up July 16 at 10:[address] Daley. If you have dizziness, vomiting or diarrhea before your appointment, stop taking your metformin and please call clinic right away. Return to The Hospital For: Fever, vomiting, diarrhea, dizziness Activity & Diet Discharge Diet: Low Sodium Diet, ADA Diet Activity as Tolerated: Yes Orders-Post D/C & Referrals Pneu Vac Indicated: Yes Copy Copies To 1: DEONNA DALEY MD, BETHANY N MD Jun 24, 2016 10:28 am
--- NOTE | 2016-06-24 11:10 | Discharge Summary ---
Diagnosis/Chief Complaint Date of Admission Jun 23, 2016 at 9:10 am Date of Discharge June 24, 2016 Admission Diagnosis Admission Diagnosis 1. Dizziness/presyncope 2. Vomiting and diarrhea 3. Chronic renal insufficiency 4. Chronic venous stasis dermatitis/edema 5. DMII 6. HTN 7. Restrictive lung disease 8. Chest pain Discharge Diagnosis 1. Dizziness/presyncope- likely secondary to viral gastroenteritis, improved with IVF overnight -Consider related to metformin- instructed patient if vomiting/diarrhea recur after starting metformin, stop and call clinic 2. Vomiting and diarrhea- likely viral, but possibly related to metformin, see above 3. Chronic renal insufficiency- at baseline -Monitor 4. Chronic venous stasis dermatitis/peripheral edema -No acute changes or open lesions currently 5. DMII- held metformin while inpatient, see notes above -Sliding scale insulin 6. HTN- resumed home meds 7. Restrictive lung disease- RT protocol 8. Chest pain- not consistent with acute issue given the chronic nature, but with multiple risk factors warrants Cardiology evaluation -Troponin was negative in spite of long-standing pain, will refer outpatient for work-up given significant risk factors. Chief Complaint/HPI Chief Complaint/HPI Patient came to ER after vomiting and dizziness at home. He notes that he was watching a movie late last night and when he stood up to get a drink around 2: 30 am, he was dizzy and lightheaded, got his drink and continued to feel poorly , tried taking a shower, but then he vomited and continued to have difficulty with balance and fell in his hallway. He had his girlfriend bring him to the hospital and states he vomited at least twice as was getting to the ER and also started having diarrhea around the same time the other symptoms started. He denies abdominal pain and has no known sick contacts. Discharge Summary-Simple/Stand Consultations Discharge Physical Examination Allergies: Coded Allergies: adhesive tape (Verified Allergy, Unknown, 06/24/16) Vitals & I&Os Vital Sign - Last 12Hours Date Time Temp Pulse Resp B/P (MAP) Pulse Ox O2 Delivery O2 Flow Rate FiO2 06/24/16 09:00 95 Room Air 06/24/16 07:20 97.7 86 20 148/70 Intake and Output 06/24/16 00:00 Intake Total 3800 ml Output Total 3100 ml Balance 700 ml General Appearance: Alert, Oriented X3, No Acute Distress Respiratory: Clear to Auscultation, Normal Air Movement Cardiovascular: Regular Rate, No Murmurs Abdominal: Normal Bowel Sounds, Soft, No Tenderness Skin: Other (chronic venous stasis dermatitis on lower legs) Neuro: Normal Speech Psych/Mental Status: Mental Status NL Hospital Course See final discharge diagnosis. Labs Laboratory Tests Test 06/23/16 06:43 06/23/16 08:20 06/23/16 14:41 06/23/16 15:03 Range/Units White Blood Count 14.0 H 4.3-11.0 10^3/uL Red Blood Count 5.40 4.35-5.85 10^6/uL Hemoglobin 16.3 13.3-17.7 G/DL Hematocrit 48 40-54 % Mean Corpuscular Volume 89 80-99 FL Mean Corpuscular Hemoglobin 30 25-34 PG Mean Corpuscular Hemoglobin Concent 34 32-36 G/DL Red Cell Distribution Width 14.1 10.0-14.5 % Platelet Count 205 130-400 10^3/uL Mean Platelet Volume 11.7 H 7.4-10.4 FL Neutrophils (%) (Auto) 68 42-75 % Lymphocytes (%) (Auto) 21 12-44 % Monocytes (%) (Auto) 8 0-12 % Eosinophils (%) (Auto) 2 0-10 % Basophils (%) (Auto) 1 0-10 % Neutrophils # (Auto) 9.6 H 1.8-7.8 X 10^3 Lymphocytes # (Auto) 3.0 1.0-4.0 X 10^3 Monocytes # (Auto) 1.1 H 0.0-1.0 X 10^3 Eosinophils # (Auto) 0.3 0.0-0.3 10^3/uL Basophils # (Auto) 0.1 0.0-0.1 10^3/uL Sodium Level 136 135-145 MMOL/L Potassium Level 3.9 3.6-5.0 MMOL/L Chloride Level 99 98-107 MMOL/L Carbon Dioxide Level 23 21-32 MMOL/L Anion Gap 14 5-14 MMOL/L Blood Urea Nitrogen 29 H 7-18 MG/DL Creatinine 1.73 H 0.60-1.30 MG/DL Estimat Glomerular Filtration Rate 43 BUN/Creatinine Ratio 17 Glucose Level 195 H 70-105 MG/DL Calcium Level 9.7 8.5-10.1 MG/DL Magnesium Level 1.9 1.8-2.4 MG/DL Total Bilirubin 0.4 0.1-1.0 MG/DL Aspartate Amino Transf (AST/SGOT) 21 5-34 U/L Alanine Aminotransferase (ALT/SGPT) 35 0-55 U/L Alkaline Phosphatase 60 40-136 U/L Troponin I < 0.30 <0.30 NG/ML C-Reactive Protein High Sensitivity 0.91 H 0.00-0.50 MG/DL Total Protein 7.2 6.4-8.2 G/DL Albumin 3.7 3.2-4.5 G/DL Urine Color YELLOW Urine Clarity CLEAR Urine pH 6 5-9 Urine Specific [place] 1.015 L 1.016-1.022 Urine Protein 4+ NEGATIVE Urine Glucose (UA) 1+ H NEGATIVE Urine Ketones NEGATIVE NEGATIVE Urine Nitrite NEGATIVE NEGATIVE Urine Bilirubin NEGATIVE NEGATIVE Urine Urobilinogen NORMAL NORMAL MG/DL Urine Leukocyte Esterase 1+ H NEGATIVE Urine RBC (Auto) NEGATIVE NEGATIVE Urine RBC NONE /HPF Urine WBC 5-10 H /HPF Urine Squamous Epithelial Cells 2-5 /HPF Urine Crystals NONE /LPF Urine Bacteria TRACE /HPF Urine Casts NONE /LPF Urine Mucus NEGATIVE /LPF Urine Culture Indicated YES Glucometer 124 H 70-110 MG/DL Lactic Acid Level 0.96 0.50-2.00 MMOL/L Test 06/23/16 20:05 06/24/16 05:39 06/24/16 10:06 Range/Units Glucometer 82 181 H 70-110 MG/DL White Blood Count 8.9 4.3-11.0 10^3/uL Red Blood Count 4.63 4.35-5.85 10^6/uL Hemoglobin 14.0 13.3-17.7 G/DL Hematocrit 43 40-54 % Mean Corpuscular Volume 92 80-99 FL Mean Corpuscular Hemoglobin 30 25-34 PG Mean Corpuscular Hemoglobin Concent 33 32-36 G/DL Red Cell Distribution Width 14.4 10.0-14.5 % Platelet Count 162 130-400 10^3/uL Mean Platelet Volume 12.0 H 7.4-10.4 FL Neutrophils (%) (Auto) 58 42-75 % Lymphocytes (%) (Auto) 30 12-44 % Monocytes (%) (Auto) 8 0-12 % Eosinophils (%) (Auto) 3 0-10 % Basophils (%) (Auto) 1 0-10 % Neutrophils # (Auto) 5.2 1.8-7.8 X 10^3 Lymphocytes # (Auto) 2.7 1.0-4.0 X 10^3 Monocytes # (Auto) 0.7 0.0-1.0 X 10^3 Eosinophils # (Auto) 0.2 0.0-0.3 10^3/uL Basophils # (Auto) 0.1 0.0-0.1 10^3/uL Sodium Level 140 135-145 MMOL/L Potassium Level 4.3 3.6-5.0 MMOL/L Chloride Level 109 H 98-107 MMOL/L Carbon Dioxide Level 21 21-32 MMOL/L Anion Gap 10 5-14 MMOL/L Blood Urea Nitrogen 20 H 7-18 MG/DL Creatinine 1.41 H 0.60-1.30 MG/DL Estimat Glomerular Filtration Rate 54 BUN/Creatinine Ratio 14 Glucose Level 98 70-105 MG/DL Calcium Level 7.7 L 8.5-10.1 MG/DL Total Bilirubin 0.4 0.1-1.0 MG/DL Aspartate Amino Transf (AST/SGOT) 22 5-34 U/L Alanine Aminotransferase (ALT/SGPT) 33 0-55 U/L Alkaline Phosphatase 49 40-136 U/L Total Protein 6.0 L 6.4-8.2 G/DL Albumin 3.2 3.2-4.5 G/DL Radiology Reviewed CXR: chronic hyperexpansion and increased interstitial markings Discharge Instructions to patient/family Please see electonic discharge instructions given to patient. Discharge Medications Reviewed and agree with Discharge Medication list on patient's Discharge Instruction sheet Clinical Quality Measures DVT/VTE Risk/Contraindication: Risk Factor Score Per Nursin RFS Level Per Nursing on Admit: 4+=Very High Copy Copies To 1: DEONNA BARKER MD, BETHANY N MD Jun 24, 2016 11:10 am
[2016-06-24 12:00] VITALS: BP 158/79
== END 2016-06-24 10:26 | disposition home or self-care (01) ==
LOC: ER 06:42 → UNDOADMOB 09:10 → 4TH 09:10 → UNDODISOB 06-24 12:00
PROVIDERS: ADMIT Family Medicine; ATTEND Family Medicine
DX: R42 Dizziness and giddiness (principal); R55 Syncope and collapse; R11.10 Vomiting, unspecified; R19.7 Diarrhea, unspecified; I12.9 Hypertensive chronic kidney disease with stage 1 through stage 4 chronic kidney disease, or unspecified chronic kidney disease; N18.9 Chronic kidney disease, unspecified; I87.2 Venous insufficiency (chronic) (peripheral); E11.9 Type 2 diabetes mellitus without complications; Z79.84 Long term (current) use of oral hypoglycemic drugs; J98.4 Other disorders of lung; R07.9 Chest pain, unspecified
CPT/HCPCS: 36415; 71010; 80053; 81000; 82962; 83605; 83735; 84484; 85025; 86141; 87088; 93005; 93041; 94640; 94760; 96374; 96375; G0378

== ENCOUNTER → 2016-08-27 | Outpatient (CLI) | payer OTHER ==
[~2016-08-27] MED LIST changes: +METO50TA2 PO; +RT-ALBUTEROL SULF 2.5 MG/3 ML PRE-MIX VIAL IH ONE
== END ==
LOC: RT 11:16
DX: Z02.71 Encounter for disability determination (principal)
CPT/HCPCS: 94060; 94621; 94640; 94729

== ENCOUNTER → 2016-08-28 | Outpatient (CLI) | payer OTHER ==
[~2016-08-28] MED LIST changes: -RT-ALBUTEROL SULF 2.5 MG/3 ML PRE-MIX VIAL IH ONE
== END ==
LOC: CARD 12:06
PROVIDERS: ATTEND Internal Medicine Interventional Cardiology
DX: E13.9 Other specified diabetes mellitus without complications (principal); R07.9 Chest pain, unspecified; I10 Essential (primary) hypertension; N28.9 Disorder of kidney and ureter, unspecified; J44.9 Chronic obstructive pulmonary disease, unspecified; Z72.0 Tobacco use
CPT/HCPCS: 93306

== ENCOUNTER → 2016-10-01 | Outpatient (CLI) | payer OTHER ==
[2016-10-01 08:14] LABS: BILIRUBIN,URINE NEGATIVE (NEGATIVE); KETONES,URINE NEGATIVE (NEGATIVE); LEUKOCYTE ESTERASE ,URINE NEGATIVE (NEGATIVE); NITRITE,URINE NEGATIVE (NEGATIVE); PH,URINE 6 (5-9); PROTEIN,URINE 3+ (NEGATIVE); UROBILINOGEN,URINE NORMAL (NORMAL)
[2016-10-01 08:18] LABS: BASOPHILS # (AUTO) 0.2 10^3/uL (0.0-0.1); BASOPHILS % (AUTO) 2 % (0-10); EOSINOPHILS # (AUTO) 0.3 10^3/uL (0.0-0.3); EOSINOPHILS % (AUTO) 3 % (0-10); LYMPHOCYTES # (AUTO) 2.7 X 10^3 (1.0-4.0); LYMPHOCYTES % (AUTO) 26 % (12-44); MEAN CORPUSCULAR HEMOGLOBIN 30 PG (25-34); MEAN CORPUSCULAR HGB CONC 33 G/DL (32-36); MEAN CORPUSCULAR VOLUME 90 FL (80-99); MEAN PLATELET VOLUME 12.1 FL (7.4-10.4); MONOCYTES # (AUTO) 0.9 X 10^3 (0.0-1.0); MONOCYTES % (AUTO) 8 % (0-12); NEUTROPHILS # (AUTO) 6.3 X 10^3 (1.8-7.8); NEUTROPHILS % (AUTO) 61 % (42-75); PLATELET COUNT 192 10^3/uL (130-400); RED BLOOD COUNT 5.07 10^6/uL (4.35-5.85); RED CELL DISTRIBUTION WIDTH 14.3 % (10.0-14.5); WHITE BLOOD COUNT 10.4 10^3/uL (4.3-11.0)
[2016-10-01 08:32] LABS: SQUAMOUS EPITHELIAL CELL,UR 0-2 /HPF; WBC,URINE 0-2 /HPF
[2016-10-01 08:33] LABS: ALBUMIN 3.6 GM/DL (3.2-4.5); CREATININE SERUM 1.7 MG/DL (0.60-1.30); PHOSPHORUS 4.2 MG/DL (2.3-4.7); POTASSIUM 4.1 MMOL/L (3.6-5.0)
[2016-10-01 08:34] LABS: PROTEIN/CREATININE RATIO 4.34
[2016-10-01 08:41] LABS: BAND NEUTROPHILS 2 %; BASOPHILS % (MANUAL) 1 %; EOSINOPHILS % (MANUAL) 1 %; LYMPHOCYTES % (MANUAL) 25 %; NEUTROPHILS % (MANUAL) 62 %
== END ==
LOC: LAB 07:39
PROVIDERS: ATTEND Internal Medicine Interventional Cardiology
DX: N28.9 Disorder of kidney and ureter, unspecified (principal)
CPT/HCPCS: 36415; 80069; 81000; 82570; 84156; 85007; 85027

== ENCOUNTER → 2016-10-02 | Outpatient (CLI) | payer OTHER ==
[~2016-10-02] MED LIST changes: +CATHETER FLUSH 10 ML SYR IV PRN; +REGADENOSON 0.4 MG/5 ML SYR (LEXISCAN) IV ONE
== END ==
LOC: CARD 07:47
PROVIDERS: ATTEND Internal Medicine Interventional Cardiology
DX: R07.9 Chest pain, unspecified (principal); E13.9 Other specified diabetes mellitus without complications; I10 Essential (primary) hypertension; N28.9 Disorder of kidney and ureter, unspecified; Z72.0 Tobacco use; J44.9 Chronic obstructive pulmonary disease, unspecified

== ENCOUNTER → 2016-10-06 | Outpatient (CLI) | payer OTHER ==
[2016-10-06 09:22] VITALS: BP 218/105
[2016-10-06 09:25] VITALS: BP 236/95
[2016-10-06 09:28] VITALS: BP 179/92
--- NOTE | 2016-10-06 16:22 | STRESS TEST ---
PROCEDURE PHYSICIAN: JESS MIDDLETON DATE OF PROCEDURE: 10/06/2016 PHARMACOLOGICAL NUCLEAR STRESS TEST REPORT: ATTENDING PHYSICIAN: Dr. Carrol Middleton PRIMARY PHYSICIAN: Dr. Daley. DIAGNOSIS: Chest pain. PROCEDURE DETAILS: The patient was brought to the stress lab after informed consent was taken. Lexiscan stress test was performed according to the protocol. 0.4 mg of Lexiscan was given IV. Low grade exercise was performed. Baseline EKG showed sinus rhythm 86 bpm. Blood pressure was 218/105. Maximum heart rate was 180 bpm and blood pressure was 236/9 mmHg. The patient did not have any chest pain, EKG changes or arrhythmias during the stress test. 10.87 mCi of Myoview were given for rest imaging and 31.3 mCi of Myoview were given for stress imaging. TID 1.14. EF of 70%. Normal myocardial perfusion imaging on stress and rest. Normal wall motion on gaited images. CONCLUSION: 1. Pharmacological test is negative for ischemia. 2. Normal myocardial perfusion imaging on stress and rest. Job ID: [id number] Dictated Date: 10/06/2016 12:44:47 Demolition Worker Date: 10/06/2016 16:17:47 / tylor
== END ==
LOC: CARD 07:36
PROVIDERS: ATTEND Internal Medicine Interventional Cardiology
DX: R07.9 Chest pain, unspecified (principal); E11.9 Type 2 diabetes mellitus without complications; I10 Essential (primary) hypertension; N28.9 Disorder of kidney and ureter, unspecified; J44.9 Chronic obstructive pulmonary disease, unspecified; Z72.0 Tobacco use
CPT/HCPCS: 78452; 93017